=== PATIENT | male | born 1995 | race Caucasian/White ===

== ENCOUNTER 2016-09-27 18:05 | Emergency (ER) | payer SELFPAY ==
[2016-09-27] MEDS ORDERED: NAPROXEN 375 MG TABLET PO ONE (19:22)
--- NOTE | 2016-09-27 19:23 | ER Document Report ---
ED GI/ - General Mode of Arrival: Ambulatory Information source: Patient TRAVEL OUTSIDE OF THE [place] IN LAST 30 DAYS: No - HPI Patient complains to provider of: Abdominal pain Onset: Other - last few days - General Chief Complaint: Abdominal Pain Stated Complaint: ABDOMINAL PAIN Time Seen by Provider: 09/27/16 19:12 Notes: Patient is a 21-year-old male that presents to the emergency department today with complaints of right-sided chest wall pain and central abdominal pain. Patient states that he was seen at an urgent care in [place] and they "took some x-rays and told him to come to the ER for a sonogram". 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 Patient states he has been doing this job since June and there has been no increase in intensity or duration of his work since beginning. Patient states his pain is exacerbated with sneezing, breathing, or moving in certain directions. Patient denies a history of asthma or shortness of breath. (BRET TAVAREZ) - Related Data Allergies/Adverse Reactions: No Known Allergies Allergy (Verified 04/14/16 22:07) Past Medical History - General Information source: Patient - Social History Smoking Status: Never Smoker Cigarette use (# per day): No Frequency of alcohol use: None Drug Abuse: None Lives with: Family Family History: Reviewed & Not Pertinent - Medical History Medical History: Negative Renal/ Medical History: Denies: Hx Peritoneal Dialysis Past Surgical History: Reports: Other - Surgery to remove a tumor from rib 6, 7 and 8 on the right side as an infan - Immunizations Hx Diphtheria, Pertussis, Tetanus Vaccination: Yes Review of Systems - Review of Systems Constitutional: No symptoms reported EENT: No symptoms reported Cardiovascular: No symptoms reported Respiratory: No symptoms reported Gastrointestinal: See HPI, Abdominal pain, Diarrhea Genitourinary: No symptoms reported Male Genitourinary: No symptoms reported Musculoskeletal: No symptoms reported Skin: No symptoms reported Hematologic/Lymphatic: No symptoms reported Neurological/Psychological: No symptoms reported -: Yes All other systems reviewed and negative Physical Exam - Vital signs Vitals: Temp Pulse Resp BP Pulse Ox 97.8 F 69 18 137/89 H 100 09/27/16 18:33 09/27/16 18:33 09/27/16 18:33 09/27/16 18:33 09/27/16 18:33 - Notes Notes: Physical Exam: General: Alert, appears well. HEENT: Normocephalic. Atraumatic. PERRLA. Extraocular movements intact. Oropharynx clear. Neck: Supple. Respiratory: No respiratory distress. Scarring over the right chest consistent with surgical history. Right lateral chest wall tenderness with palpation. No erythema or fluctuance. Abdominal: Tenderness with palpation over the left rectus abdominis. No distension. Extremities: Moves all four extremities. Neurological: Cranial nerves II-XII grossly intact bilaterally. Normal cognition. AAOx4. Normal speech. Psychological: Normal affect. Normal Mood. Skin: Warm. Dry. Normal color. (BRET TAVAREZ) Course - Re-evaluation Re-evalutation: 09/27/16 Patient with reproducible practice abdominis pain and chest wall pain. Vitals are stable. Patient appears well otherwise. He will be treated for muscle strain and is to avoid shoveling asphalt for the rest of the week. Stable for discharge. (LOIS HALEY) - Vital Signs Vital signs: Temp Pulse Resp BP Pulse Ox 98.9 F 70 20 128/32 H 100 09/27/16 19:44 09/27/16 19:44 09/27/16 19:44 09/27/16 19:44 09/27/16 19:44 Discharge - Discharge Clinical Impression: Strain of rectus abdominis muscle Qualifiers: Encounter type: initial encounter Qualified Code(s): S39.011A - Strain of muscle, fascia and tendon of abdomen, initial encounter Strain of chest wall Qualifiers: Encounter type: initial encounter Qualified Code(s): S29.011A - Strain of muscle and tendon of front wall of thorax, initial encounter Condition: Stable Disposition: HOME, SELF-CARE Instructions: Muscle Strain ([facility]), Chest Wall Pain ([facility]) Prescriptions: Naproxen [Naprosyn 250 mg Tablet] 250 mg PO DAILY PRN #14 tablet PRN Reason: Forms: Special Work Note, Return to Work Referrals: NICOLE MICHAUD MD [Primary Care Provider] - Follow up as needed Scribe Attestation: 09/27/16 20:55 I personally performed the services described in the documentation, reviewed and edited the documentation which was dictated to the scribe in my presence, and it accurately records my words and actions. (LOIS HALEY) Scribe Documentation - Scribe Written by Scribe:: Joanie Guerin, 09/27/2016 193 acting as scribe for :: [place]
[2016-09-27 19:49] VITALS: BP 128/32
== END 2016-09-27 19:44 | disposition home or self-care (01) ==
LOC: ER 18:05
DX: S39.011A Strain of muscle, fascia and tendon of abdomen, initial encounter (principal); S29.011A Strain of muscle and tendon of front wall of thorax, initial encounter; R19.7 Diarrhea, unspecified; X50.3XXA Overexertion from repetitive movements, initial encounter; Y93.H3 Activity, building and construction
CPT/HCPCS: 99283

== ENCOUNTER 2020-04-30 14:26 | Emergency (ER) | payer SELFPAY ==
--- NOTE | 2020-04-30 14:45 | ER Document Report ---
ED Medical Screen (RME) - General Chief Complaint: Shortness Of Breath Stated Complaint: SHORTNESS OF BREATH/DIZZINESS/HEADACHE/CHILLS Time Seen by Provider: 04/30/20 14:39 Notes: HPI: 24-year-old male presenting for cough shortness of breath occasional fatigue and dizziness over the last 2 to 3 days. Patient concerned about Covid. No abdominal pain has had occasional nausea PHYSICAL EXAMINATION: Patient is mildly tachycardic, does not become dyspneic with speaking. Lung sounds are clear to auscultation. Pulse oximetry 98% on room air not hypoxic I have greeted and performed a rapid initial assessment of this patient. A comprehensive ED assessment and evaluation of the patient, analysis of test results and completion of medical decision making process will be conducted by an additional ED providers. Please note that clinical decision making for this patient was made during the 2019 pandemic of novel coronavirus which caused a significant strain on the healthcare system including at this particular facility. Criteria for admission discharge and level of care decisions as well as treatment decisions have necessarily changed TRAVEL OUTSIDE OF THE [place] IN LAST 30 DAYS: No - Related Data Allergies/Adverse Reactions: No Known Allergies Allergy (Verified 04/14/16 22:07) Past Medical History Renal/ Medical History: Denies: Hx Peritoneal Dialysis Past Surgical History: Reports: Other - Surgery to remove a tumor from rib 6, 7 and 8 on the right side as an infan - Immunizations Hx Diphtheria, Pertussis, Tetanus Vaccination: Yes Physical Exam - Vital signs Vitals: Temp Pulse Resp BP Pulse Ox 98.4 F 101 H 18 144/94 H 98 04/30/20 14:42 04/30/20 14:42 04/30/20 14:42 04/30/20 14:42 04/30/20 14:42 Course - Vital Signs Vital signs: Temp Pulse Resp BP Pulse Ox 98.4 F 101 H 18 144/94 H 98 04/30/20 14:42 04/30/20 14:42 04/30/20 14:42 04/30/20 14:42 04/30/20 14:42
--- NOTE | 2020-04-30 15:33 | RADIOLOGY REPORT (SQ) ---
EXAM DESCRIPTION: CHEST SINGLE VIEW IMAGES COMPLETED DATE/TIME: 04/30/2020 3:24 pm REASON FOR STUDY: cough sob COMPARISON: None. EXAM PARAMETERS: NUMBER OF VIEWS: One view. TECHNIQUE: An AP view of the chest was obtained. RADIATION DOSE: NA LIMITATIONS: None. FINDINGS: LUNGS AND PLEURA: No consolidation, pleural effusion or pneumothorax. MEDIASTINUM AND HILAR STRUCTURES: No mediastinal or hilar contour abnormality. HEART AND VASCULAR STRUCTURES: The cardiac silhouette and pulmonary vasculature are within normal johnson its. BONES: Chronic deformities of several right-sided ribs. HARDWARE: None in the chest. OTHER: No other finding. IMPRESSION: Chronic deformities of several right-sided ribs. There is no acute cardiopulmonary proc ess. TECHNICAL DOCUMENTATION: JOB ID: [id number] 2010 [employer]- All Rights Reserved Reading location - IP/workstation name: [email or web address]
--- NOTE | 2020-04-30 17:06 | ER Document Report ---
ED General - General Chief Complaint: Shortness Of Breath Stated Complaint: SHORTNESS OF BREATH/DIZZINESS/HEADACHE/CHILLS Time Seen by Provider: 04/30/20 14:39 TRAVEL OUTSIDE OF THE [place] IN LAST 30 DAYS: No - HPI Notes: 24-year-old male presents with chief complaint of "to get tested". Patient is here seeking Covid testing. He states for the past 3 days he has had nonproductive cough, intermittent shortness of breath, fatigue/tiredness, lightheadedness, headache and his legs hurt. He states that he works at [employer]. He states that he is otherwise healthy, no major medical problems. He states that when he was a baby he had a tumor on his rib cage which was removed but has not had any major issues with that since. - Related Data Allergies/Adverse Reactions: No Known Allergies Allergy (Verified 04/14/16 22:07) Past Medical History - General Information source: Patient - Social History Smoking Status: Never Smoker Family History: Reviewed & Not Pertinent Renal/ Medical History: Denies: Hx Peritoneal Dialysis Malignancy Medical History: Reports Hx Bone Cancer Past Surgical History: Reports: Other - Surgery to remove a tumor from rib 6, 7 and 8 on the right side as an infan - Immunizations Hx Diphtheria, Pertussis, Tetanus Vaccination: Yes Review of Systems - Review of Systems Constitutional: denies: Fever EENT: No symptoms reported Cardiovascular: denies: Chest pain Respiratory: See HPI Gastrointestinal: denies: Abdominal pain, Diarrhea, Vomiting Genitourinary: No symptoms reported Male Genitourinary: No symptoms reported Musculoskeletal: Muscle pain Skin: No symptoms reported Hematologic/Lymphatic: No symptoms reported Neurological/Psychological: Headaches Physical Exam - Vital signs Vitals: Temp Pulse Resp BP Pulse Ox 98.4 F 101 H 18 144/94 H 98 04/30/20 14:42 04/30/20 14:42 04/30/20 14:42 04/30/20 14:42 04/30/20 14:42 - General General appearance: Appears well, Alert In distress: None - HEENT Head: Normocephalic, Atraumatic Conjunctiva: Normal Extraocular movements intact: Yes Pupils: PERRL Neck: Supple - Respiratory Respiratory status: No: Labored, Tachypnea Chest status: Nontender Breath sounds: Normal - Cardiovascular Rhythm: Regular Heart sounds: Normal auscultation Normal capillary refill: Yes - Abdominal Tenderness: Nontender - Extremities General upper extremity: Normal color, Normal ROM General lower extremity: Normal color, Normal ROM. No: Edema - Neurological Neuro grossly intact: Yes Cognition: Normal Orientation: AAOx4 - Psychological Associated symptoms: Normal affect - Skin Skin Temperature: Warm Course - Re-evaluation Re-evalutation: 24-year-old male presents to the emergency department requesting testing for Covid. He has had several symptoms suggestive of Covid versus other viral process for the past 3 days. He is afebrile, not hypoxic. Lungs are clear to auscultation. He is overall very well-appearing. Covid testing has been ordered. A chest x-ray performed was without consolidations. I discussed with him symptomatic treatment at home. I also discussed with him strict quarantine until results are available and discussed CDC guidelines for return to work. A work note was provided. Return precautions given, stable time discharge. - Vital Signs Vital signs: Temp Pulse Resp BP Pulse Ox 98.4 F 101 H 18 144/94 H 98 04/30/20 14:42 04/30/20 14:42 04/30/20 14:42 04/30/20 14:42 04/30/20 14:42 - Laboratory Results Critical Laboratory Results Reviewed: No Critical Results - Radiology Results Critical Radiology Results Reviewed: No Critical Results Discharge - Discharge Clinical Impression: Person under investigation for COVID-19 Disposition: HOME, SELF-CARE Instructions: COVID-19 Guidance for Persons Under Investigation Additional Instructions: As discussed, you must quarantine at home until you receive the results of your Covid swab. Continue symptomatic care which includes Tylenol/cough syrup/Mucinex etc. Be sure to drink plenty of fluids. Return to the emergency department for any concerning worsening symptoms. Forms: Return to Work
[2020-04-30 17:59] VITALS: BP 121/80
[2020-04-30 18:44] LABS: A TYPE INFLUENZA AG NEGATIVE (NEGATIVE)
[2020-04-30 18:45] LABS: B INFLUENZA AG NEGATIVE (NEGATIVE)
== END 2020-04-30 17:52 | disposition home or self-care (01) ==
LOC: ER 14:26
DX: U07.1 COVID-19 (principal); R05 Cough; R06.02 Shortness of breath; R53.83 Other fatigue; R42 Dizziness and giddiness; R51.9 Headache, unspecified; M79.10 Myalgia, unspecified site
CPT/HCPCS: 99284; 87635; 87804; 71045; C9803